=== PATIENT | female | born 1975 | race Caucasian/White ===

== ENCOUNTER 2017-03-07 12:27 | Emergency (ER) | payer OTHER ==
[~2017-03-07] VITALS: Ht 154.9 cm; Wt 68.0 kg
[~2017-03-07 12:27] MED LIST: AMOXICILLIN500 MG PO; ANAPROX DS550 MG PO; DARVOCET N 1001 TAB PO; FLONASE 0.05% 121 EA NAS; IBU-8800 MG PO; Motrin,Rufen800 MG PO; ZANTAC150 MG PO; ZITHROMAX Z PA250 MG PO; ZYRTEC10 M2 PO
[2017-03-07 12:56] VITALS: BP 118/60
[2017-03-07] MEDS ORDERED: GUAIFENESIN600 MG PO (13:28)
== END 2017-03-07 13:58 | disposition home or self-care (01) ==
LOC: ED 12:27
DX: J06.9 Acute upper respiratory infection, unspecified (principal); F17.200 Nicotine dependence, unspecified, uncomplicated

== ENCOUNTER 2017-03-26 14:10 | Emergency (ER) | payer OTHER ==
[~2017-03-26] VITALS: Ht 154.9 cm; Wt 65.8 kg
[~2017-03-26 14:10] MED LIST changes: +GUAIFENESIN600 MG PO
[2017-03-26 14:33] VITALS: BP 115/67
[2017-03-26] MEDS ORDERED: ZITHROMAX250 MG PO (17:23)
[2017-03-26] MEDS ORDERED: DELTASONE20 M1 PO (17:23)
== END 2017-03-26 17:24 | disposition home or self-care (01) ==
LOC: ED 14:10
DX: J06.9 Acute upper respiratory infection, unspecified (principal); F17.200 Nicotine dependence, unspecified, uncomplicated; F10.10 Alcohol abuse, uncomplicated; Z90.49 Acquired absence of other specified parts of digestive tract; Z98.51 Tubal ligation status

== ENCOUNTER 2018-11-22 18:01 | Emergency (ER) | payer SELFPAY ==
[~2018-11-22] VITALS: Ht 154.9 cm; Wt 65.8 kg
[~2018-11-22 18:01] MED LIST changes: +DELTASONE20 M1 PO; +ZITHROMAX250 MG PO
[2018-11-22 18:07] VITALS: BP 157/96
== END 2018-11-22 19:49 | disposition home or self-care (01) ==
LOC: ED 18:01
DX: R51 Headache (principal)

== ENCOUNTER 2019-04-20 16:36 | Emergency (ER) | payer SELFPAY ==
[~2019-04-20] VITALS: Ht 152.4 cm; Wt 69.4 kg
[2019-04-20 17:03] LABS: BASO # 0.1 10*3/uL (0.0-0.1); BASO % 0.5 % (0.0-1.0); EOS # 0.2 10*3/uL (0.0-0.4); EOS % 1.5 % (1.0-4.0); HEMATOCRIT 43.9 % (37.0-47.0); HEMOGLOBIN 14.7 g/dl (12.0-16.0); LYMPH # 3.7 10*3/uL (1.3-4.4); LYMPH % 35.4 % (27.0-41.0); MEAN CELL VOLUME 95.9 fl (81.0-99.0); MEAN CORPUSCULAR HGB 32.1 pg (27.0-31.0); MEAN CORPUSCULAR HGB CONC 33.5 g/dl (33.0-37.0); MEAN PLATELET VOLUME 10.4 fl (9.6-12.3); MONO # 0.4 10*3/uL (0.1-1.0); MONO % 3.6 % (3.0-9.0); NEUT # 6.1 10*3/uL (2.3-7.9); NEUT % 58.7 % (47.0-73.0); PLATELET COUNT AUTOMATED 291 10*3/uL (130-400); RED BLOOD COUNT 4.58 10*6/uL (4.10-5.10); RED CELL DISTRI WIDTH 12.7 % (0-14.5); WHITE BLOOD COUNT 10.4 10*3/uL (4.8-10.8)
[2019-04-20 17:14] LABS: ACT PARTIAL THROMBO TIME 23.9 SECONDS (20.0-32.1)
[2019-04-20 17:18] LABS: ALBUMIN 3.9 gm/dl (3.1-4.5); ALKALINE PHOSPHATASE 72 U/L (45-117); BUN 13 mg/dl (7-24); CHLORIDE 107 mmol/L (98-107); CREATININE 0.97 mg/dL (0.55-1.02); SGOT/AST 15 IU/L (3-35); SGPT/ALT 25 U/L (12-78); SODIUM 139 mmol/L (136-145); TOTAL PROTEIN 7.9 gm/dL (6.4-8.2)
[2019-04-20 17:21] LABS: TROPONIN I < 0.015 ng/ml (<0.045)
[2019-04-20 20:57] VITALS: BP 126/67
== END 2019-04-20 19:24 | disposition left against medical advice (07) ==
LOC: ED 16:36
PROVIDERS: Emergency Medicine
DX: R53.1 Weakness (principal); R47.81 Slurred speech; R20.0 Anesthesia of skin; H53.9 Unspecified visual disturbance

== ENCOUNTER 2019-09-11 10:49 | Emergency (ER) | payer OTHER ==
[~2019-09-11] VITALS: Ht 152.4 cm; Wt 61.2 kg
[2019-09-11 10:53] VITALS: BP 111/85
[2019-09-11 11:24] LABS: EOS # 0.1 10*3/uL (0.0-0.4); EOS % 3.8 % (1.0-4.0); HEMATOCRIT 44.2 % (37.0-47.0); LYMPH % 32.9 % (27.0-41.0); MEAN CELL VOLUME 92.5 fl (81.0-99.0); MEAN CORPUSCULAR HGB 30.3 pg (27.0-31.0); MEAN CORPUSCULAR HGB CONC 32.8 g/dl (33.0-37.0); MEAN PLATELET VOLUME 9.7 fl (9.6-12.3); MONO # 0.2 10*3/uL (0.1-1.0); MONO % 6.5 % (3.0-9.0); NEUT # 1.6 10*3/uL (2.3-7.9); NEUT % 55.5 % (47.0-73.0); PLATELET COUNT AUTOMATED 167 10*3/uL (130-400); RED BLOOD COUNT 4.78 10*6/uL (4.10-5.10); RED CELL DISTRI WIDTH 11.9 % (0-14.5); WHITE BLOOD COUNT 2.9 10*3/uL (4.8-10.8)
[2019-09-11 11:38] LABS: ALBUMIN 3.8 gm/dl (3.1-4.5); ALKALINE PHOSPHATASE 69 U/L (45-117); BUN 15 mg/dl (7-24); CHLORIDE 107 mmol/L (98-107); CREATININE 0.92 mg/dL (0.55-1.02); POTASSIUM 3.9 mmol/L (3.5-5.1); SGOT/AST 42 IU/L (3-35); SGPT/ALT 40 U/L (12-78); SODIUM 137 mmol/L (136-145); TOTAL PROTEIN 8.3 gm/dL (6.4-8.2)
== END 2019-09-11 14:17 | disposition left against medical advice (07) ==
LOC: ED 10:49
PROVIDERS: Nurse Practitioner Family
DX: R51 Headache (principal); F32.9 Major depressive disorder, single episode, unspecified; F41.9 Anxiety disorder, unspecified; Z79.899 Other long term (current) drug therapy; Z87.891 Personal history of nicotine dependence

== ENCOUNTER 2020-04-12 12:34 | Emergency (ER) | payer OTHER ==
[~2020-04-12] VITALS: Ht 152.4 cm; Wt 68.0 kg
[2020-04-12 12:47] VITALS: BP 119/68
[2020-04-12] MEDS ORDERED: AUGMENTIN 875875 MG PO (13:36)
== END 2020-04-12 13:52 | disposition home or self-care (01) ==
LOC: ED 12:34
DX: J32.9 Chronic sinusitis, unspecified (principal); H65.192 Other acute nonsuppurative otitis media, left ear

== ENCOUNTER 2020-07-13 12:02 | Emergency (ER) | payer OTHER ==
[~2020-07-13] VITALS: Wt 70.3 kg
[~2020-07-13 12:02] MED LIST changes: +AUGMENTIN 875875 MG PO
[2020-07-13 14:20] VITALS: BP 111/68
[2020-07-13] MEDS ORDERED: CYCLOBENZAPRINE5 M3 PO (14:22)
== END 2020-07-13 14:34 | disposition home or self-care (01) ==
LOC: ED 12:02
DX: R51.9 Headache, unspecified (principal); Z98.51 Tubal ligation status; Z79.899 Other long term (current) drug therapy; Z90.49 Acquired absence of other specified parts of digestive tract

== ENCOUNTER 2020-09-13 14:51 | Emergency (ER) | payer OTHER ==
[~2020-09-13] VITALS: Ht 152.4 cm; Wt 68.0 kg
[~2020-09-13 14:51] MED LIST changes: +CYCLOBENZAPRINE5 M3 PO
[2020-09-13 14:56] VITALS: BP 124/86
[2020-09-13] MEDS ORDERED: LIDEX 0.05% CRE15 GM T ×3 (15:22→15:36)
[2020-09-13] MEDS ORDERED: CEPHALEXIN500 M1 PO ×3 (15:22→15:36)
== END 2020-09-13 15:29 | disposition home or self-care (01) ==
LOC: ED 14:51
DX: S30.860A Insect bite (nonvenomous) of lower back and pelvis, initial encounter (principal); Z79.899 Other long term (current) drug therapy; Z90.49 Acquired absence of other specified parts of digestive tract; Z98.51 Tubal ligation status; W57.XXXA Bitten or stung by nonvenomous insect and other nonvenomous arthropods, initial encounter; Y93.89 Activity, other specified; Y92.89 Other specified places as the place of occurrence of the external cause; Y99.8 Other external cause status

== ENCOUNTER 2023-03-21 09:42 | Emergency (ER) | payer OTHER ==
[~2023-03-21] VITALS: Wt 63.5 kg
[~2023-03-21 09:42] MED LIST changes: +CEPHALEXIN500 M1 PO; +LIDEX 0.05% CRE15 GM T
[2023-03-21 10:08] VITALS: BP 125/79
== END 2023-03-21 13:21 | disposition home or self-care (01) ==
LOC: ED 09:42
DX: S83.92XA Sprain of unspecified site of left knee, initial encounter (principal); F32.A Depression, unspecified; F41.9 Anxiety disorder, unspecified; Z90.49 Acquired absence of other specified parts of digestive tract; Z98.51 Tubal ligation status; Z98.890 Other specified postprocedural states; X50.1XXA Overexertion from prolonged static or awkward postures, initial encounter; Y93.89 Activity, other specified; Y92.89 Other specified places as the place of occurrence of the external cause; Y99.8 Other external cause status

== ENCOUNTER 2023-07-05 10:30 | Emergency (ER) | payer OTHER ==
[~2023-07-05] VITALS: Ht 152.4 cm; Wt 61.2 kg
[2023-07-05] MEDS ORDERED: CLOPIDOGREL75 MG PO (10:43)
[2023-07-05] MEDS ORDERED: LEADER NATUR1000 MCG PO (10:43)
[2023-07-05] MEDS ORDERED: Synthroid,Levo25 MCG PO (10:43)
[2023-07-05] MEDS ORDERED: NEURONTIN300 MG PO (10:44)
[2023-07-05] MEDS ORDERED: SIMVASTATIN40 MG PO (10:44)
[2023-07-05] MEDS ORDERED: MELOXICAM7.5 MG PO (10:45)
[2023-07-05] MEDS ORDERED: Ondansetron Hydrochloride 4 MG/2 ML VIAL IV ONE (10:55)
[2023-07-05] MEDS ORDERED: SODIUM CHLORIDE 0.9% 1,000 ML IV ONE (10:55)
[2023-07-05] MEDS ORDERED: IOHEXOL 300 MG/ML 100 ML VIAL IV ONE (11:05)
[2023-07-05 11:12] LABS: BASO % 0.6 % (0.0-1.0); EOS # 0.1 10*3/uL (0.0-0.4); EOS % 2.8 % (1.0-4.0); LYMPH # 0.7 10*3/uL (1.3-4.4); LYMPH % 20.6 % (27.0-41.0); MEAN CELL VOLUME 93.8 fl (81.0-99.0); MEAN CORPUSCULAR HGB 29.9 pg (27.0-31.0); MEAN CORPUSCULAR HGB CONC 31.9 g/dl (33.0-37.0); MEAN PLATELET VOLUME 9.9 fl (9.6-12.3); MONO # 0.3 10*3/uL (0.1-1.0); MONO % 8.8 % (3.0-9.0); NEUT # 2.1 10*3/uL (2.3-7.9); NEUT % 66.9 % (47.0-73.0); PLATELET COUNT AUTOMATED 216 10*3/uL (130-400); RED BLOOD COUNT 4.48 10*6/uL (4.10-5.10); RED CELL DISTRI WIDTH 12.4 % (0-14.5); WHITE BLOOD COUNT 3.2 10*3/uL (4.8-10.8)
[2023-07-05 11:33] LABS: ALKALINE PHOSPHATASE 56 U/L (46-116); BUN 14 mg/dl (9-23); CHLORIDE 104 mmol/L (98-107); LIPASE 35 U/L (12-53); POTASSIUM 3.7 mmol/L (3.4-5.1); SGPT/ALT 15 U/L (5-49); TOTAL PROTEIN 7.1 gm/dL (6.0-8.0)
[2023-07-05 12:55] LABS: BILIRUBIN Negative (Negative); BLOOD Negative (Negative); CLARITY Clear (Clear); COLOR Yellow (Yellow); GLUCOSE Negative (Negative); KETONE Trace (Negative); LEUKO ESTERASE 2+ (Negative); NITRITE Negative (Negative); PH 5.5 (4.5-8.0); SPECIFIC GRAVITY 1.015 (1.001-1.030)
[2023-07-05] MEDS ORDERED: CIPRO500 MG PO (13:13)
[2023-07-05] MEDS ORDERED: METRONIDAZOLE500 M1 PO (13:13)
[2023-07-05] MEDS ORDERED: ONDANSETRON4 MG SL (13:15)
[2023-07-05] MEDS ORDERED: Ciprofloxacin Hydrochloride 500 MG TAB PO ONE (13:15)
[2023-07-05] MEDS ORDERED: METRONIDAZOLE 500 MG TAB PO ONE (13:15)
[2023-07-05 13:46] LABS: BACTERIA 2+; CALCIUM OXALATE CRYSTALS Trace; MUCOUS 1+; WBC 16-20 wbc/hpf (0-5)
[2023-07-05 14:25] VITALS: BP 158/89
== END 2023-07-05 14:27 | disposition home or self-care (01) ==
LOC: ED 10:30
PROVIDERS: Nurse Practitioner Family
DX: K52.9 Noninfective gastroenteritis and colitis, unspecified (principal); Z20.822 Contact with and (suspected) exposure to COVID-19; R11.2 Nausea with vomiting, unspecified; Z79.899 Other long term (current) drug therapy; Z90.49 Acquired absence of other specified parts of digestive tract; Z98.51 Tubal ligation status

== ENCOUNTER → 2024-02-17 | Outpatient (CLI) | payer OTHER ==
[~2024-02-17] MED LIST changes: +CIPRO500 MG PO; +CLOPIDOGREL75 MG PO; +LEADER NATUR1000 MCG PO; +MELOXICAM7.5 MG PO; +METRONIDAZOLE500 M1 PO; +NEURONTIN300 MG PO; +ONDANSETRON4 MG SL; +SIMVASTATIN40 MG PO; +Synthroid,Levo25 MCG PO
== END | disposition home or self-care (01) ==
LOC: MAMMO 12:51
PROVIDERS: ATTEND Family Medicine
DX: Z12.31 Encounter for screening mammogram for malignant neoplasm of breast (principal); R92.323 Mammographic fibroglandular density, bilateral breasts

== ENCOUNTER → 2024-05-05 | Outpatient (CLI) | payer BC | END | disposition home or self-care (01) | LOC: US 14:18 | PROVIDERS: ATTEND Family Medicine | DX: R92.8 Other abnormal and inconclusive findings on diagnostic imaging of breast (principal) ==

== ENCOUNTER → 2024-07-01 | Outpatient (CLI) | payer BC | END | disposition home or self-care (01) | LOC: US 15:43 | PROVIDERS: ATTEND Family Medicine | DX: D24.2 Benign neoplasm of left breast (principal); R92.8 Other abnormal and inconclusive findings on diagnostic imaging of breast ==

== ENCOUNTER 2024-10-19 12:14 | Emergency (ER) | payer BC ==
[~2024-10-19] VITALS: Ht 152.4 cm; Wt 65.8 kg
[2024-10-19 12:24] VITALS: BP 135/83
[2024-10-19] MEDS ORDERED: TRIAMCINOLONE430 GM TD (12:34)
[2024-10-19] MEDS ORDERED: PREDNISONE20 M1 PO (12:34)
== END 2024-10-19 12:39 | disposition home or self-care (01) ==
LOC: ED 12:14
DX: L25.9 Unspecified contact dermatitis, unspecified cause (principal); Z79.899 Other long term (current) drug therapy; Z90.49 Acquired absence of other specified parts of digestive tract